=== PATIENT | male | born 1965 | race Caucasian/White ===

== ENCOUNTER 2016-11-07 17:58 | Emergency (ER) | payer OTHER ==
[~2016-11-07] VITALS: Ht 190.5 cm; Wt 87.0 kg
[~2016-11-07 17:58] MED LIST: FLUOXETINE HCL40 MG PO; KLONOPIN1 MG PO; KLONOPIN2 MG PO; LAMICTAL; LAMICTAL25 MG PO; LAMOTRIGINE100 MG PO; LITHIUM CARBON300 MG PO; LORTAB 5-325 M1 EACH PO; NEURONTIN300 MG PO; OXYCODONE HCL10 MG PO; PRILOSEC OTC20 MG PO; PROZAC20 MG PO; SKELAXIN800 MG PO; STRATTERA80 MG PO; TYLENOL325 M1 PO; WELLBUT PO; WELLBUTRIN XL300 MG PO; ZYPREXA5 MG PO
[2016-11-07 20:19] VITALS: BP 99/66
== END 2016-11-07 20:23 | disposition home or self-care (01) ==
LOC: EME 17:58
DX: F12.129 Cannabis abuse with intoxication, unspecified (principal); E78.5 Hyperlipidemia, unspecified; F17.200 Nicotine dependence, unspecified, uncomplicated
CPT/HCPCS: 99281; 99284

== ENCOUNTER 2017-04-05 15:11 | Emergency (ER) | payer OTHER ==
[~2017-04-05] VITALS: Ht 188 cm; Wt 80.3 kg
[2017-04-05 16:04] VITALS: BP 151/110
== END 2017-04-05 16:27 | disposition home or self-care (01) ==
LOC: EME 15:11
DX: F16.10 Hallucinogen abuse, uncomplicated (principal); F32.9 Major depressive disorder, single episode, unspecified; F90.9 Attention-deficit hyperactivity disorder, unspecified type; F20.9 Schizophrenia, unspecified; F41.9 Anxiety disorder, unspecified; F17.210 Nicotine dependence, cigarettes, uncomplicated; E78.5 Hyperlipidemia, unspecified; K85.90 Acute pancreatitis without necrosis or infection, unspecified; R56.9 Unspecified convulsions; Z88.6 Allergy status to analgesic agent
CPT/HCPCS: 99281; 99283

== ENCOUNTER 2017-05-31 17:08 | Emergency (ER) | payer OTHER ==
[~2017-05-31] VITALS: Ht 172.7 cm; Wt 78.3 kg
[2017-05-31 18:04] VITALS: BP 114/90
== END 2017-05-31 18:04 | disposition home or self-care (01) ==
LOC: EME 17:08
DX: T40.1X1A Poisoning by heroin, accidental (unintentional), initial encounter (principal); E78.5 Hyperlipidemia, unspecified; F90.9 Attention-deficit hyperactivity disorder, unspecified type; F41.9 Anxiety disorder, unspecified; F32.9 Major depressive disorder, single episode, unspecified; F17.200 Nicotine dependence, unspecified, uncomplicated; Z88.6 Allergy status to analgesic agent
CPT/HCPCS: J2310